=== PATIENT | female | born 1985 | race African-American/Black ===

== ENCOUNTER → 2016-10-18 | Outpatient (REF) | payer MEDICAID ==
[2016-10-18 18:38] LABS: MEAN CORPUSCULAR HEMOGLOBIN 26.2 pg (27.0-33.0); MEAN CORPUSCULAR HGB CONC 30.7 g/dl (32.0-36.5); MEAN CORPUSCULAR VOLUME 85.2 fl (80.0-96.0); RED CELL DISTRIBUTION WIDTH 14.4 % (11.5-14.5); WHITE BLOOD COUNT 6.5 K/mm3 (4.0-10.0)
[2016-10-18 18:39] LABS: ALBUMIN 4.2 GM/DL (3.2-5.2); ALBUMIN/GLOBULIN RATIO 1.24 (1.00-1.93); ALKALINE PHOSPHATASE 58 U/L (45-117); ALT/SGPT 33 U/L (12-78); ANION GAP 8 MEQ/L (8-16); AST/SGOT 19 U/L (15-37); BILIRUBIN,TOTAL 0.7 MG/DL (0.2-1.0); BLOOD UREA NITROGEN 14 MG/DL (7-18); CALCIUM LEVEL 9.5 MG/DL (8.5-10.1); CARBON DIOXIDE LEVEL 29 MEQ/L (21-32); CHLORIDE LEVEL 105 MEQ/L (98-107); CHOLESTEROL LEVEL 236 MG/DL (<200); CREATININE FOR GFR 0.92 MG/DL (0.55-1.02); FREE T4 0.97 NG/DL (0.76-1.46); GLOMERULAR FILTRATION RATE > 60.0 (>60); GLUCOSE, FASTING 69 MG/DL (70-105); POTASSIUM SERUM 4.6 MEQ/L (3.5-5.1); SODIUM LEVEL 142 MEQ/L (136-145); TOTAL PROTEIN 7.6 GM/DL (6.4-8.2); TRIGLYCERIDES LEVEL 170 MG/DL (<150)
== END ==
LOC: M SFHCLERA 14:08
PROVIDERS: ATTEND Family Medicine
DX: F33.1 Major depressive disorder, recurrent, moderate (principal); Z86.32 Personal history of gestational diabetes; E66.01 Morbid (severe) obesity due to excess calories; Z86.79 Personal history of other diseases of the circulatory system

== ENCOUNTER → 2017-02-07 | Outpatient (REF) | payer OTHER | LOC: M SFHCLERA 10:14 | PROVIDERS: ATTEND Family Medicine | DX: Z20.818 Contact with and (suspected) exposure to other bacterial communicable diseases (principal) ==

== ENCOUNTER → 2017-04-10 | Outpatient (CLI) | payer OTHER ==
--- NOTE | 2017-04-10 10:33 | REP ---
REASON: Pain and decreased range of motion. COMPARISON EXAMINATION: None. FINDINGS: Three views of the shoulder were performed. The acromioclavicular and glenohumeral relationships are within normal limits. There is no acute fracture or destructive osseous lesions. Signed by Romeo Gutierrez DO 04/10/2017 10:58 A
== END ==
LOC: M LRY 09:50
PROVIDERS: ATTEND Physician Assistant
DX: M25.511 Pain in right shoulder (principal)

== ENCOUNTER → 2017-07-29 | Outpatient (CLI) | payer OTHER ==
--- NOTE | 2017-08-01 12:16 | SLEEPCENT ---
DATE OF PROCEDURE: 07/29/2017 ORDERED BY: Dr. Moe. INTERPRETATION: Nocturnal polysomnography was performed due evaluate sleep physiology in this patient with history of excessive somnolence and snoring. 7 hours and 58 minutes of data were reviewed. There were 372 minutes of sleep identified. Sleep latency was prolonged at 47 minutes. REM latency was normal at 70 minutes. Sleep architecture was fair with period of wake around 2 a.m. resulting in reduced sleep efficiency 78.9%. There were two REM cycles noted. Patient's electrocardiogram showed a sinus rhythm with an average heart rate of 75 beats per minute. EEG showed reasonably normal wave forms for awake and sleep. There was some activity in the eye leads suggesting drug effect (fluoxetine). There were 69 respiratory events identified of 10 seconds in duration or greater for an apnea-hypopnea index of 11. Events were primarily obstructive not exclusive to sleep stage nor body posture. Arousals occurred 7.4 times per hour. No significant oxygen desaturations were appreciated. There was also some limb activity noted scattered over the course of the study. Limb movement arousal index was 8.1. IMPRESSION: 1. Obstructive sleep apnea syndrome (G47.33). Apnea-hypopnea index 11.1. 2. Mild periodic limb movement disorder (G47.61). Limb movement arousal index 8.1. RECOMMENDATION: The patient should be encouraged to return to the sleep disorder center for pressure therapy. In the interim, alcohol and sedative avoidance should be practiced and caution exercised during the operation of motor vehicles. Pending the outcome of pressure therapy, interventions to reduce the frequency of arousal from limb activity may also be helpful.
== END ==
LOC: M SLEEP 20:00
PROVIDERS: ATTEND Internal Medicine Pulmonary Disease
DX: G47.33 Obstructive sleep apnea (adult) (pediatric) (principal); G47.61 Periodic limb movement disorder

== ENCOUNTER → 2017-09-12 | Outpatient (CLI) | payer OTHER | LOC: M SLEEP 20:07 | DX: G47.33 Obstructive sleep apnea (adult) (pediatric) (principal) | CPT/HCPCS: 95811 ==

== ENCOUNTER → 2017-09-18 | Outpatient (REF) ==
[2017-09-19 08:10] LABS: RUBEOLA IgG ANTIBODY 28.5 AU/mL (Immune >29.9)
[2017-09-20 10:50] LABS: RUBELLA IgG QUALITATIVE IMMUNE (IMMUNE)
== END ==
LOC: M LAB 14:23
DX: Z01.84 Encounter for antibody response examination (principal)

== ENCOUNTER → 2018-06-12 | Outpatient (CLI) | payer OTHER ==
[2018-06-12 19:21] LABS: HEMATOCRIT 36.3 % (36.0-47.0); MEAN CORPUSCULAR HGB CONC 30.3 g/dl (32.0-36.5); MEAN CORPUSCULAR VOLUME 82.5 fl (80.0-96.0); PLATELET COUNT, AUTOMATED 271 10^3/uL (150-450); WHITE BLOOD COUNT 8.5 10^3/uL (4.0-10.0)
[2018-06-12 19:59] LABS: ALKALINE PHOSPHATASE 50 U/L (45-117); ALT/SGPT 22 U/L (12-78); ANION GAP 7 MEQ/L (8-16); AST/SGOT 15 U/L (7-37); BILIRUBIN,TOTAL 0.3 MG/DL (0.2-1.0); BLOOD UREA NITROGEN 9 MG/DL (7-18); CALCIUM LEVEL 9.2 MG/DL (8.5-10.1); CARBON DIOXIDE LEVEL 27 MEQ/L (21-32); CHLORIDE LEVEL 107 MEQ/L (98-107); CHOLESTEROL LEVEL 214 MG/DL (<200); CREATININE FOR GFR 0.86 MG/DL (0.55-1.30); GLOMERULAR FILTRATION RATE > 60.0 (>60); GLUCOSE, FASTING 83 MG/DL (70-100); HDL CHOLESTEROL 67 MG/DL (>40); SODIUM LEVEL 141 MEQ/L (136-145); TRIGLYCERIDES LEVEL 196 MG/DL (<150)
[2018-06-12 20:00] LABS: ALBUMIN 3.6 GM/DL (3.2-5.2); ALBUMIN/GLOBULIN RATIO 0.97 (1.00-1.93); CHOLESTEROL RISK RATIO 3.194 (<5); FREE T4 0.85 NG/DL (0.76-1.46); LDL CHOLESTEROL 108 MG/DL (<100); NON-HDL-C 147 MG/DL; THYROID STIMULATING HORMONE 0.987 uIU/ML (0.358-3.740); TOTAL PROTEIN 7.3 GM/DL (6.4-8.2)
[2018-06-12 20:02] LABS: MALB URINE SIEMENS 13.1 MG/L
[2018-06-12 20:11] LABS: MAU/CREAT RATIO 7.9 MCG/MG (0.0-30.0)
== END ==
LOC: M LAB 12:50
DX: E78.5 Hyperlipidemia, unspecified (principal); I10 Essential (primary) hypertension
CPT/HCPCS: 84443

== ENCOUNTER → 2018-10-26 | Outpatient (CLI) | payer OTHER ==
--- NOTE | 2018-10-26 16:08 | REP ---
MR BRAIN WITHOUT CONTRAST: HISTORY: Intractable headache. The examination is incomplete. There are no definite areas of abnormal signal intensity in the brain. There is no intraparenchymal hemorrhage, infarct, mass or midline shift. The sella turcica is partially empty. The ventricular system is normal in appearance. There is no extracerebral collection. Mixed iso-, hyper- and hypointense signal intensity is present in the right petrous apex. This may represent a cholesterol granuloma. Minimal mucosal thickening is present in the maxillary sinuses. IMPRESSION: 1. There is no definite intraparenchymal lesion. 2. There is mixed signal intensity in the right petrous apex that may represent a cholesterol granuloma. Head CT may be helpful for further evaluation. Electronically Signed by Jeremias Connor MD 10/26/2018 04:12 P
== END ==
LOC: M RAD 14:55
PROVIDERS: ATTEND Physician Assistant
DX: R51 Headache (principal); G93.89 Other specified disorders of brain

== ENCOUNTER → 2018-12-03 | Outpatient (CLI) | payer OTHER ==
[~2018-12-03] MED LIST: ISOVUE-370 76% 125ML VIAL (Q9967 PER ML) As Ordered ONE
--- NOTE | 2018-12-04 08:51 | REP ---
CT HEAD WITHOUT AND WITH CONTRAST: HISTORY: Abnormal MR. CONTRAST: Isovue 370, 75 mL. COMPARISON: MR 10/26/2018. There is no intraparenchymal hemorrhage, mass or midline shift. There is no abnormal enhancement. The ventricular system is normal in appearance. There is no extracerebral collection. There is partial opacification of the air cells in the right petrous apex. The left mastoid air cells and visualized sinuses are clear. IMPRESSION: 1. There is no acute intracranial lesion. 2. There is partial opacification of the air cells in the right petrous apex. This is likely secondary to a cholesterol granuloma. Electronically Signed by Jeremias Connor MD 12/04/2018 08:59 A
== END ==
LOC: M RAD 17:12
PROVIDERS: ATTEND Physician Assistant
DX: R90.89 Other abnormal findings on diagnostic imaging of central nervous system (principal)
CPT/HCPCS: 70470; Q9967

== ENCOUNTER → 2019-05-02 | Outpatient (REF) | payer OTHER ==
[~2019-05-02] MED LIST changes: +IBUP-1022 PO; -ISOVUE-370 76% 125ML VIAL (Q9967 PER ML) As Ordered ONE; +OXYC1TAB23 PO; +PROZ40CA PO; +WELLTAB38 PO
[2019-05-02 10:03] LABS: HEMATOCRIT 36.4 % (36.0-47.0); HEMOGLOBIN 11.1 g/dl (12.0-15.5); MEAN CORPUSCULAR HEMOGLOBIN 24.9 pg (27.0-33.0); MEAN CORPUSCULAR HGB CONC 30.5 g/dl (32.0-36.5); MEAN CORPUSCULAR VOLUME 81.6 fl (80.0-96.0); PLATELET COUNT, AUTOMATED 245 10^3/uL (150-450); RED BLOOD COUNT 4.46 10^6/uL (4.00-5.40); WHITE BLOOD COUNT 6.6 10^3/uL (4.0-10.0)
[2019-05-02 10:33] LABS: PERCENT SATURATION 8.4 % (13.2-45.0)
[2019-05-06 14:29] LABS: HGB SOLUBILITY Negative (Negative)
== END ==
LOC: M SFHCPLAZ 08:26
PROVIDERS: ATTEND Family Medicine
DX: D64.9 Anemia, unspecified (principal)

== ENCOUNTER → 2019-06-17 | Outpatient (CLI) | payer OTHER ==
[~2019-06-17] MED LIST changes: -IBUP-1022 PO; -OXYC1TAB23 PO
--- NOTE | 2019-06-17 13:39 | REP ---
ULTRASOUND LEFT LOWER LEG: Real-time sonographic of the left lower leg performed. Reportedly three superficial bumps are present laterally in the mid aspect of the left lower leg. At the most superior palpable lump there is a mildly loculated hypoechoic area of soft tissue which measures 8 x 4 x 5 mm. A fascial plane at this location is discontinuous at the site of the hypoechoic tissue. The appearance is nonspecific. This could represent focal fibrous scarring at a site of prior injury, small fibroma, or lipoma, or other soft tissue nodule is not excluded. Further soft tissue characterization could be made with MRI with and without contrast. Alternatively clinical followup may be performed. No sonographic abnormality is seen at the other two lumps more inferiorly in the lower leg.
== END ==
LOC: M WHC 09:30
PROVIDERS: ATTEND Family Medicine
DX: L98.9 Disorder of the skin and subcutaneous tissue, unspecified (principal)

== ENCOUNTER 2019-08-02 06:21 | Day surgery (SDC) | payer OTHER ==
[2019-08-02] VITALS (8 sets, daily range): BP systolic 130–141; BP diastolic 61–89
[~2019-08-02] VITALS: Ht 175.3 cm; Wt 122.4 kg
[~2019-08-02 06:21] MED LIST changes: +LIDOCAINE 1% MDV 20ML VIAL SQ PRN; +LR 1,000 ML IV ONE; +ceFAZolin SOD 2 GM in IV 1 EA IV ONE
[2019-08-02 06:53] LABS: HEMATOCRIT 37.3 % (36.0-47.0); MEAN CORPUSCULAR HEMOGLOBIN 24.4 pg (27.0-33.0); MEAN CORPUSCULAR HGB CONC 29.5 g/dl (32.0-36.5); MEAN CORPUSCULAR VOLUME 82.9 fl (80.0-96.0); PLATELET COUNT, AUTOMATED 267 10^3/uL (150-450); WHITE BLOOD COUNT 6.7 10^3/uL (4.0-10.0)
[2019-08-02] MEDS ORDERED: MIDAZOLAM INJ 2 MG/2 ML VIAL (J2250) As Ordered ONE (07:04)
[2019-08-02] MEDS ORDERED: fentaNYL 100 MCG/2 ML INJECTION (J3010) As Ordered ONE (07:04)
[2019-08-02] MEDS ORDERED: ACETAMINOPHEN 1000MG 100ML IV BTL (OFIRMEV) (J0131 PER 10MG) As Ordered ONE (07:04)
[2019-08-02] MEDS ORDERED: ROCURONIUM BROMIDE 50 MG/5 ML VIAL As Ordered ONE ×2 (07:04→08:28)
[2019-08-02] MEDS ORDERED: LIDOCAINE 2% INJ 100 MG/5 ML SDV (FOR ANES.) As Ordered ONE (07:04)
[2019-08-02] MEDS ORDERED: SUGAMMADEX SODIUM 500 MG/5 ML VIAL (BRIDION) As Ordered ONE (07:04)
[2019-08-02] MEDS ORDERED: KETOROLAC 60 MG/2 ML VIAL (J1885) As Ordered ONE (07:04)
[2019-08-02] MEDS ORDERED: ONDANSETRON 4MG/2ML VIAL (J2405) As Ordered ONE (07:04)
[2019-08-02] MEDS ORDERED: dexameTHASONE 4 MG/ML 1ML VIAL (J1100) As Ordered ONE (07:04)
[2019-08-02] MEDS ORDERED: PROPOFOL 200 MG/20 ML VIAL As Ordered ONE (07:04)
[2019-08-02] MEDS ORDERED: BUPIVACAINE HCL 0.25% 10 ML VIAL As Ordered ONE (07:11)
[2019-08-02] MEDS ORDERED: ePHEDrine SULFATE 25 MG/5 ML(5MG/ML) SYRINGE As Ordered ONE (08:16)
[2019-08-02] MEDS ORDERED: HYDROmorphone HCL 2 MG/ML 1ML VIAL (J1170) As Ordered ONE (08:30)
[2019-08-02] MEDS ORDERED: LIDOCAINE 5% OINT 30 GM As Ordered ONE (08:51)
[2019-08-02] MEDS ORDERED: OXYC1TAB23 PO (09:55)
[2019-08-02] MEDS ORDERED: IBUP-1022 PO (09:57)
[2019-08-02] MEDS ORDERED: fentaNYL 100 MCG/2 ML INJECTION (J3010) IV PRN (10:30)
[2019-08-02] MEDS ORDERED: ONDANSETRON 4MG/2ML VIAL (J2405) IV PRN ×2 (10:30→10:45)
[2019-08-02] MEDS ORDERED: PERCOCET 5MG/325MG TAB PO PRN ×2 (10:30)
[2019-08-02] MEDS ORDERED: MORPHINE 4 MG/ML 1ML VIAL/SYRINGE (J2270) IV PRN (10:30)
[2019-08-02] MEDS ORDERED: LR 1,000 ML IV SCH (10:30)
[2019-08-02] MEDS ORDERED: HYDROMORPHONE HCL 0.5 MG/ 0.5 ML SYRINGE (J1170 PER 1) IV PRN (10:30)
[2019-08-02] MEDS: LR 1,000 ML IV SCH ×2 (11:59→18:03)
[2019-08-02] MEDS: PERCOCET 5MG/325MG TAB PO PRN ×2 (12:41→18:54)
[2019-08-02] MEDS: DOCUSATE SODIUM 100 MG CAP PO SCH (20:07)
[2019-08-02] MEDS: KETOROLAC 30 MG/ML VIAL (J1885) IV PRN (21:11)
[2019-08-03] VITALS: BP 140/80
[2019-08-03] MEDS: LR 1,000 ML IV SCH (02:30)
[2019-08-03 04:00] VITALS: BP 137/65
[2019-08-03] MEDS: PERCOCET 5MG/325MG TAB PO PRN ×2 (04:12→12:03)
[2019-08-03] MEDS: KETOROLAC 30 MG/ML VIAL (J1885) IV PRN ×2 (07:27→12:04)
[2019-08-03 08:00] VITALS: BP 129/59
[2019-08-03] MEDS: DOCUSATE SODIUM 100 MG CAP PO SCH (12:03)
--- NOTE | 2019-08-05 15:28 | RO ---
DATE OF OPERATION: 08/02/2019 PREOPERATIVE DIAGNOSES: Menorrhagia, fibroids. POSTOPERATIVE DIAGNOSES: Menorrhagia, fibroids. PROCEDURE: Robotic-assisted laparoscopic hysterectomy, cystoscopy. SURGEON: Jeremias Glez MD SALES RECRUITER: ANESTHESIA: General endotracheal. ESTIMATED BLOOD LOSS: 200 mL. URINE OUTPUT: 100 mL. FINDINGS: Mildly enlarged uterus, fibroids, dense adhesions of the uterus to the anterior abdominal wall, surgically absent fallopian tubes. Normal ovaries bilaterally. DESCRIPTION OF PROCEDURE: Operative summary; Patient taken to the operating room where general endotracheal anesthesia was induced. She was prepped and draped in sterile fashion in the dorsal lithotomy position. Silveira catheter was placed. VCare uterine manipulator was placed. A periumbilical incision was made with a scalpel. A Veress needle was placed through this incision while tenting up on the skin of the abdomen. Intra-abdominal location of Veress needle was assessed with the use of a saline-filled syringe. A pneumoperitoneum was created. The Veress needle was removed. An 8 mm trocar using eXpresso was inserted through this incision. Three 8 mm suprapubic ports were placed under direct visualization. Patient was placed in Trendelenburg position. The da Nano surgical robot was docked to the ports. Using the vessel sealer and the fenestrated bipolar instrument, the utero-ovarian ligaments were coagulated and incised. The round ligaments were coagulated and incised, and anterior and posterior leaves of the broad ligament were . Uterine vessels were able to be identified, and they were coagulated and incised at the level of the Vcare cup. Monopolar endoshears used to help dissect dense adhesions of the uterine fundus to the anterior abdominal wall, were taken down sharply, monopolar coagulation. Bladder flap was further defined. Colpotomy was created in the upper vagina at the level of the VCare cup, was extended around the vagina. Specimen containing the uterus and cervix was removed through the vagina. Vaginal cuff was closed with #2 V-Loc suture in a running fashion. The pelvis was irrigated with good hemostasis noted. Cystoscopy was performed using a 70 degrees cystoscope. Bilateral ureteral jets were identified. There was no evidence of injury to the bladder. All instruments removed. Sponge, instrument, and needle counts were correct. The skin was closed with #4-0 Monocryl subcuticular sutures.
== END 2019-08-03 12:25 | disposition home or self-care (01) ==
LOC: M SDC 06:21 → M PED 10:30 → M SDC 08-03 12:25
PROVIDERS: ATTEND Specialist
DX: N80.0 Endometriosis of uterus (principal); D25.1 Intramural leiomyoma of uterus; N72 Inflammatory disease of cervix uteri; G44.009 Cluster headache syndrome, unspecified, not intractable; F41.9 Anxiety disorder, unspecified; F32.9 Major depressive disorder, single episode, unspecified; D64.9 Anemia, unspecified; G47.30 Sleep apnea, unspecified; F17.210 Nicotine dependence, cigarettes, uncomplicated; Z79.899 Other long term (current) drug therapy
CPT/HCPCS: 36415; 58570; 85027; 86850; 86900; 86901; 88307; 96374; 96375; 96376; J0131; J0690; J1100; J1170; J1885; J2250; J2405; J3010

== ENCOUNTER → 2019-08-26 | Outpatient (CLI) | payer OTHER ==
[~2019-08-26] MED LIST changes: +IBUP-1022 PO; -LIDOCAINE 1% MDV 20ML VIAL SQ PRN; -LR 1,000 ML IV ONE; +OXYC1TAB23 PO; -ceFAZolin SOD 2 GM in IV 1 EA IV ONE
[2019-08-26 17:42] LABS: HEMATOCRIT 37.5 % (36.0-47.0); HEMOGLOBIN 10.5 g/dl (12.0-15.5); MEAN CORPUSCULAR HEMOGLOBIN 23.1 pg (27.0-33.0); MEAN CORPUSCULAR VOLUME 82.6 fl (80.0-96.0); PLATELET COUNT, AUTOMATED 421 10^3/uL (150-450); RED BLOOD COUNT 4.54 10^6/uL (4.00-5.40); WHITE BLOOD COUNT 7.8 10^3/uL (4.0-10.0)
[2019-08-26 17:47] LABS: ALBUMIN 3.4 GM/DL (3.2-5.2); ALT/SGPT 23 U/L (12-78); BILIRUBIN,DIRECT < 0.1 MG/DL (0.0-0.2); BILIRUBIN,TOTAL 0.3 MG/DL (0.2-1.0); BLOOD UREA NITROGEN 13 MG/DL (7-18); CALCIUM LEVEL 9.5 MG/DL (8.5-10.1); CARBON DIOXIDE LEVEL 28 MEQ/L (21-32); CHLORIDE LEVEL 106 MEQ/L (98-107); CREATININE FOR GFR 0.88 MG/DL (0.55-1.30); GLOMERULAR FILTRATION RATE > 60.0 (>60); GLUCOSE, FASTING 92 MG/DL (70-100); PHOSPHORUS LEVEL 3.9 MG/DL (2.5-4.9); POTASSIUM SERUM 4.6 MEQ/L (3.5-5.1); SODIUM LEVEL 140 MEQ/L (136-145); TOTAL PROTEIN 7.6 GM/DL (6.4-8.2)
== END ==
LOC: M PLALAB 13:37
PROVIDERS: ATTEND Podiatrist Foot & Ankle Surgery
DX: B35.1 Tinea unguium (principal); Z79.899 Other long term (current) drug therapy

== ENCOUNTER → 2020-07-28 | Outpatient (CLI) | payer SELFPAY | LOC: M LABSMTC 10:46 | PROVIDERS: ATTEND Pediatrics | DX: Z20.828 Contact with and (suspected) exposure to other viral communicable diseases (principal) ==

== ENCOUNTER → 2020-11-26 | Outpatient (REF) | payer OTHER, MEDICAID ==
[2020-11-26 17:47] LABS: APPEARANCE, URINE CLOUDY (CLEAR); BACTERIA, URINE AUTO 1+ (NEGATIVE); BILIRUBIN, URINE AUTO NEGATIVE (NEGATIVE); BLOOD, URINE BLOOD NEGATIVE (NEGATIVE); COLOR, URINE YELLOW (YELLOW); GLUCOSE, URINE (UA) AUTO NEGATIVE (NEGATIVE); KETONE, URINE AUTO NEGATIVE (NEGATIVE); LEUKOCYTE ESTERASE, URINE AUTO TRACE (NEGATIVE); MUCUS, URINE SMALL (NEGATIVE); NITRITE, URINE AUTO NEGATIVE (NEGATIVE); PROTEIN, URINE AUTO NEGATIVE (NEGATIVE); RBC, URINE AUTO 1 /HPF (0-3); SPECIFIC GRAVITY URINE AUTO 1.021 (1.002-1.035); SQUAMOUS EPITHELIAL CELL UR AU 17 /HPF (0-6); WBC, URINE AUTO 2 /HPF (0-3)
== END ==
LOC: M LAB REF 16:36
PROVIDERS: ATTEND Physician Assistant
DX: N39.0 Urinary tract infection, site not specified (principal)

== ENCOUNTER 2021-06-10 09:02 | Emergency (ER) | payer MEDICAID, OTHER ==
[~2021-06-10] VITALS: Ht 175.3 cm; Wt 128.0 kg
[2021-06-10] MEDS ORDERED: WELLTAB38 PO (13:13)
[2021-06-10] MEDS ORDERED: DEPA1TAB PO (13:13)
[2021-06-10] MEDS ORDERED: PROZ20CA11 PO (13:13)
[2021-06-10 13:31] VITALS: BP 138/98
--- NOTE | 2021-06-11 13:10 | ER ---
ER CONSULTATION DATE: 06/10/2021 I was called from the Emergency Room today, June 10 as the patient was there, this was after she had called the clinic, spoken with the nurse, detailed there, and with other staff members, including the director, from which I understand. Patient has been prescribed medications, including Bupropion at 300 mg daily and Divalproex (Depakote) 125 mg daily and Prozac at 40 mg daily and there is some concern that she had not been using them with any regularity, as the last time that she collected her prescriptions from the pharmacy was in December of this year and this was confirmed on a couple of occasions, including today, by calling the pharmacy. Patient had not been doing well recently, had indicated that she wished to resume her medicines, is not feeling well, she was due to see me next week, but decided to go to the Emergency Room where she was seen, assessed by the staff on-call, patient family services. In view of the above, and the fact that she apparently did not appear in any great distress and did not require admission, she was discharged home to follow-up with me next week, and was restarted on her medicines, but at lower doses than before, as she has been off of them for quite a while, restarted on Bupropion at 150 mg daily, Depakote at 125 mg daily and Prozac at 20 mg daily, and she is to be assessed at the clinic next week. We will look at the course of recent events, in the context of adhering to treatment and recommendations. Further recommendations will be made at that time.
== END 2021-06-10 13:32 | disposition home or self-care (01) ==
LOC: M ED 09:02
DX: F32.9 Major depressive disorder, single episode, unspecified (principal); G43.909 Migraine, unspecified, not intractable, without status migrainosus; G47.33 Obstructive sleep apnea (adult) (pediatric)

== ENCOUNTER → 2021-07-13 | Outpatient (CLI) | payer OTHER, MEDICAID ==
[~2021-07-13] MED LIST changes: +DEPA1TAB PO; +PROZ20CA11 PO
[2021-07-13 15:54] LABS: BASO % 0.6 % (0.0-1.0); EOS # 0.2 10^3/uL (0.0-0.5); EOS % 2.7 % (0.0-3.0); HEMATOCRIT 43.5 % (36.0-47.0); HEMOGLOBIN 13.5 g/dl (12.0-15.5); LYMPH # 2.9 10^3/uL (1.5-5.0); LYMPH % 40.1 % (24.0-44.0); MEAN CORPUSCULAR HEMOGLOBIN 27.2 pg (27.0-33.0); MEAN CORPUSCULAR VOLUME 87.5 fl (80.0-96.0); MONO # 0.5 10^3/uL (0.0-0.8); MONO % 6.7 % (2.0-8.0); NEUTROPHILS # 3.6 10^3/uL (1.5-8.5); NEUTROPHILS % 49.6 % (36.0-66.0); PLATELET COUNT, AUTOMATED 250 10^3/uL (150-450); RED BLOOD COUNT 4.97 10^6/uL (4.00-5.40); WHITE BLOOD COUNT 7.1 10^3/uL (4.0-10.0)
[2021-07-13 16:38] LABS: ALBUMIN 4.2 GM/DL (3.2-5.2); ALT/SGPT 28 U/L (12-78); BILIRUBIN,TOTAL 0.7 MG/DL (0.2-1.0); BLOOD UREA NITROGEN 11 MG/DL (7-18); CALCIUM LEVEL 9.8 MG/DL (8.5-10.1); CARBON DIOXIDE LEVEL 27 MEQ/L (21-32); CHLORIDE LEVEL 107 MEQ/L (98-107); CREATININE FOR GFR 0.84 MG/DL (0.55-1.30); GLOMERULAR FILTRATION RATE > 60.0 (>60); GLUCOSE, FASTING 78 MG/DL (70-100); LIPASE 93 U/L (73-393); POTASSIUM SERUM 4.1 MEQ/L (3.5-5.1); SODIUM LEVEL 139 MEQ/L (136-145); TOTAL PROTEIN 7.8 GM/DL (6.4-8.2)
== END ==
LOC: M PLALAB 11:58
PROVIDERS: ATTEND Family Medicine
DX: R11.0 Nausea (principal); R10.13 Epigastric pain

== ENCOUNTER → 2021-08-10 | Outpatient (CLI) | payer MEDICAID, OTHER | LOC: M RAD 14:58 | PROVIDERS: ATTEND Physician Assistant | DX: R10.9 Unspecified abdominal pain (principal); K59.00 Constipation, unspecified ==

== ENCOUNTER 2022-02-02 07:24 | Emergency (ER) | payer OTHER ==
[~2022-02-02] VITALS: Ht 175.3 cm; Wt 126.9 kg
[2022-02-02 07:26] VITALS: BP 136/76
== END 2022-02-02 07:52 | disposition left against medical advice (07) ==
LOC: M ED 07:24
DX: Z53.21 Procedure and treatment not carried out due to patient leaving prior to being seen by health care provider (principal)

== ENCOUNTER → 2022-09-23 | Outpatient (CLI) | payer OTHER ==
[2022-09-23 17:27] LABS: BASO % 0.4 % (0.0-1.0); EOS # 0.2 10^3/uL (0.0-0.5); HEMATOCRIT 43.6 % (36.0-47.0); HEMOGLOBIN 13.4 g/dl (12.0-15.5); LIPASE 44 U/L (12-53); LYMPH # 3.4 10^3/uL (1.5-5.0); LYMPH % 48.3 % (24.0-44.0); MEAN CORPUSCULAR HEMOGLOBIN 27.7 pg (27.0-33.0); MEAN CORPUSCULAR HGB CONC 30.7 g/dl (32.0-36.5); MEAN CORPUSCULAR VOLUME 90.1 fl (80.0-96.0); MONO # 0.6 10^3/uL (0.0-0.8); MONO % 8.4 % (2.0-8.0); NEUTROPHILS # 2.8 10^3/uL (1.5-8.5); NEUTROPHILS % 39.8 % (36.0-66.0); PLATELET COUNT, AUTOMATED 233 10^3/uL (150-450); RED BLOOD COUNT 4.84 10^6/uL (4.00-5.40)
[2022-09-23 17:28] LABS: AMYLASE 346 U/L (30-118)
[2022-09-23 17:29] LABS: ALKALINE PHOSPHATASE 52 U/L (46-116); ALT/SGPT 20 U/L (7.0-40); AST/SGOT 12 U/L (<34); BILIRUBIN,TOTAL 0.4 MG/DL (0.3-1.2); BLOOD UREA NITROGEN 15 MG/DL (9-23); CALCIUM LEVEL 9.6 MG/DL (8.5-10.1); CARBON DIOXIDE LEVEL 30 MMOL/L (20-31); CHLORIDE LEVEL 106 MMOL/L (98-107); CHOLESTEROL LEVEL 222 MG/DL (<200); CHOLESTEROL RISK RATIO 3.75 (<5); CREATININE FOR GFR 0.94 MG/DL (0.55-1.30); GLOMERULAR FILTRATION RATE > 60.0 (>60); GLUCOSE, FASTING 81 MG/DL (60-100); HDL CHOLESTEROL 59.2 MG/DL (>40); LDL CHOLESTEROL 124.2 MG/DL (<100); NON-HDL-C 163 MG/DL; POTASSIUM SERUM 4.2 MMOL/L (3.5-5.1); SODIUM LEVEL 142 MMOL/L (136-145); TOTAL PROTEIN 7.1 G/DL (5.7-8.2); TRIGLYCERIDES LEVEL 193 MG/DL (<150)
[2022-09-23 17:30] LABS: THYROID STIMULATING HORMONE 0.735 uIU/ML (0.55-4.78)
[2022-09-23 18:19] LABS: HEMOGLOBIN A1c 5.5 % (4.0-6.0)
== END ==
LOC: M PLALAB 14:55
PROVIDERS: ATTEND Physician Assistant
DX: R10.9 Unspecified abdominal pain (principal); R19.8 Other specified symptoms and signs involving the digestive system and abdomen; Z13.220 Encounter for screening for lipoid disorders; E66.9 Obesity, unspecified; Z68.30 Body mass index [BMI] 30.0-30.9, adult

== ENCOUNTER → 2022-10-21 | Outpatient (CLI) | payer OTHER | LOC: M WHC 08:10 | PROVIDERS: ATTEND Physician Assistant | DX: R10.9 Unspecified abdominal pain (principal) ==

== ENCOUNTER → 2022-10-31 | Outpatient (CLI) | payer OTHER ==
[2022-10-31 15:55] LABS: BASO % 0.4 % (0.0-1.0); EOS # 0.2 10^3/uL (0.0-0.5); EOS % 2.8 % (0.0-3.0); HEMATOCRIT 43.5 % (36.0-47.0); HEMOGLOBIN 13.5 g/dl (12.0-15.5); LYMPH # 2.9 10^3/uL (1.5-5.0); LYMPH % 42.5 % (24.0-44.0); MEAN CORPUSCULAR HEMOGLOBIN 27.4 pg (27.0-33.0); MEAN CORPUSCULAR VOLUME 88.4 fl (80.0-96.0); MONO # 0.5 10^3/uL (0.0-0.8); NEUTROPHILS # 3.2 10^3/uL (1.5-8.5); PLATELET COUNT, AUTOMATED 217 10^3/uL (150-450); RED BLOOD COUNT 4.92 10^6/uL (4.00-5.40); WHITE BLOOD COUNT 6.9 10^3/uL (4.0-10.0)
[2022-10-31 16:15] LABS: HEMOGLOBIN A1c 5.9 % (4.0-6.0)
[2022-10-31 16:24] LABS: LIPASE 30 U/L (12-53)
[2022-10-31 16:25] LABS: AMYLASE 350 U/L (30-118)
[2022-10-31 16:26] LABS: ALKALINE PHOSPHATASE 47 U/L (46-116); ALT/SGPT 18 U/L (7.0-40); AST/SGOT 11 U/L (<34); BILIRUBIN,TOTAL 0.7 MG/DL (0.3-1.2); BLOOD UREA NITROGEN 11 MG/DL (9-23); CALCIUM LEVEL 9.7 MG/DL (8.5-10.1); CARBON DIOXIDE LEVEL 30 MMOL/L (20-31); CHLORIDE LEVEL 105 MMOL/L (98-107); CHOLESTEROL LEVEL 244 MG/DL (<200); CHOLESTEROL RISK RATIO 3.67 (<5); CREATININE FOR GFR 0.88 MG/DL (0.55-1.30); GLOMERULAR FILTRATION RATE > 60.0 (>60); GLUCOSE, FASTING 72 MG/DL (60-100); HDL CHOLESTEROL 66.4 MG/DL (>40); LDL CHOLESTEROL 153.2 MG/DL (<100); NON-HDL-C 178 MG/DL; POTASSIUM SERUM 4.1 MMOL/L (3.5-5.1); SODIUM LEVEL 140 MMOL/L (136-145); TOTAL PROTEIN 7.1 G/DL (5.7-8.2); TRIGLYCERIDES LEVEL 122 MG/DL (<150)
[2022-10-31 16:29] LABS: THYROID STIMULATING HORMONE 1.497 uIU/ML (0.55-4.78)
== END ==
LOC: M PLALAB 12:44
PROVIDERS: ATTEND Physician Assistant
DX: R10.9 Unspecified abdominal pain (principal); Z13.220 Encounter for screening for lipoid disorders; E66.9 Obesity, unspecified

== ENCOUNTER → 2022-11-16 | Outpatient (CLI) | payer OTHER ==
[2022-11-16 18:14] LABS: ALKALINE PHOSPHATASE 47 U/L (46-116); ALT/SGPT 11 U/L (7.0-40); AST/SGOT 11 U/L (<34); BILIRUBIN,TOTAL 0.6 MG/DL (0.3-1.2); BLOOD UREA NITROGEN 14 MG/DL (9-23); CALCIUM LEVEL 9.5 MG/DL (8.5-10.1); CARBON DIOXIDE LEVEL 28 MMOL/L (20-31); CHLORIDE LEVEL 105 MMOL/L (98-107); CREATININE FOR GFR 0.85 MG/DL (0.55-1.30); GLOMERULAR FILTRATION RATE > 60.0 (>60); GLUCOSE, FASTING 86 MG/DL (60-100); SODIUM LEVEL 140 MMOL/L (136-145)
[2022-11-16 18:47] LABS: HEPATITIS B CORE ANTIBODY IGM NEGATIVE (NEGATIVE)
== END ==
LOC: M PLALAB 14:31
PROVIDERS: ATTEND Physician Assistant
DX: R16.0 Hepatomegaly, not elsewhere classified (principal)
CPT/HCPCS: 36415; 80053; 82172; 83010; 83883; 86705; 86709; G0472

== ENCOUNTER → 2023-03-14 | Outpatient (CLI) | payer OTHER ==
[2023-03-14 10:46] LABS: BASO % 0.5 % (0.0-1.0); EOS # 0.1 10^3/uL (0.0-0.5); EOS % 1.9 % (0.0-3.0); HEMATOCRIT 43.6 % (36.0-47.0); HEMOGLOBIN 13.6 g/dl (12.0-15.5); LYMPH # 2.5 10^3/uL (1.5-5.0); MEAN CORPUSCULAR HEMOGLOBIN 27.2 pg (27.0-33.0); MEAN CORPUSCULAR HGB CONC 31.2 g/dl (32.0-36.5); MEAN CORPUSCULAR VOLUME 87.2 fl (80.0-96.0); MONO # 0.4 10^3/uL (0.0-0.8); MONO % 6.5 % (2.0-8.0); NEUTROPHILS # 2.7 10^3/uL (1.5-8.5); NEUTROPHILS % 47.9 % (36.0-66.0); PLATELET COUNT, AUTOMATED 218 10^3/uL (150-450); WHITE BLOOD COUNT 5.7 10^3/uL (4.0-10.0)
[2023-03-14 10:48] LABS: C REACTIVE PROTEIN QUANTITATIV < 0.40 MG/DL (<1.0); LIPASE 29 U/L (12-53)
[2023-03-14 10:49] LABS: AMYLASE 163 U/L (30-118)
[2023-03-14 10:50] LABS: ALBUMIN 3.7 G/DL (3.2-5.2); ALKALINE PHOSPHATASE 43 U/L (46-116); ALT/SGPT 14 U/L (7.0-40); AST/SGOT < 8 U/L (<34); BILIRUBIN,TOTAL 0.9 MG/DL (0.3-1.2); BLOOD UREA NITROGEN 12 MG/DL (9-23); CALCIUM LEVEL 9.8 MG/DL (8.5-10.1); CARBON DIOXIDE LEVEL 27 MMOL/L (20-31); CHLORIDE LEVEL 108 MMOL/L (98-107); CREATININE FOR GFR 0.84 MG/DL (0.55-1.30); GLOMERULAR FILTRATION RATE > 60.0 (>60); GLUCOSE, FASTING 90 MG/DL (60-100); POTASSIUM SERUM 3.9 MMOL/L (3.5-5.1); SODIUM LEVEL 140 MMOL/L (136-145); TOTAL PROTEIN 6.7 G/DL (5.7-8.2)
[2023-03-14 10:56] LABS: ERYTHROCYTE SEDIMENTATION RATE 30 mm/hr (0-20)
== END ==
LOC: M LAB 09:55
PROVIDERS: ATTEND Physician Assistant
DX: R10.9 Unspecified abdominal pain (principal); R74.8 Abnormal levels of other serum enzymes